=== PATIENT | female | born 1950 | race Caucasian/White ===

== ENCOUNTER → 2020-09-05 15:49 | Outpatient (BNVA) | payer MEDICARE, OTHER, SELFPAY | PROVIDERS: Family Provider Family Medicine; PCP Family Medicine; Visit Provider Internal Medicine Pulmonary Disease | DX: Z11.59 Encounter for screening for other viral diseases (principal) | CPT/HCPCS: 87635 ==

== ENCOUNTER 2020-09-10 08:57 | Outpatient (CLI) | payer MEDICARE, OTHER, SELFPAY ==
--- NOTE | 2020-09-10 10:03 | CT_ITS ---
WS: [id number] LDCT LUNG CANCER SCREENING TECHNIQUE: Noncontrast CT of the chest with coronal and sagittal reformatted images. CLINICAL INFORMATION: H/O OF TOBACCO USE COMPARISON: None. DLP: 65.81 mGy.cm DIvol: 2.[address] scans at [facility] use at least one of these dose optimization techniques: automat ed exposure control; mA and/or kV adjustment per patient size (includes targeted exams where dose is matched to clinical indication); or iterative reconstruction. FINDINGS: Moderate chronic emphysematous changes. No mediastinal or hilar lymphadenopathy. Prominent central pulmonary arteries can be seen with pulmonary arterial hypertension. Vascular calcification. Coronary calcification. No axillary lymphadenopathy. A few calcified granulomas. Large esophageal hiatal hernia with partial intrathoracic stomach. Kidneys and adrenal glands are nor mal. Chronic appearing anterior wedging at T11. Anterior hypertrophic changes T11-T12. CT/CT lung screening G0297 IMPRESSION: LUNG-RADS: 1-Negative FOLLOW UP: 12 Month: Continue annual screening with LDCT
[2020-09-10 10:06] VITALS: BP 106/59; BP 140/63
--- NOTE | 2020-09-10 13:42 | PFTS_ITS ---
Date of Study:09/10/20 Date of Dictation: MECHANICS: Forced vital capacity (FVC) is normal. Forced expiratory volume in one second (FEV1) is reduced. FEV1/FVC is reduced. FLOW VOLUME LOOP: Reduced flow at all lung volumes with scooping. LUNG VOLUMES: Total lung capacity (TLC) is normal. Residual volume (RV) is increased. DIFFUSING CAPACITY FOR CARBON MONOXIDE: Mild reduced. INTERPRETATION: The pulmonary function tests are consistent with moderate airflow obstruction. There is no significant postbronchodilator response. Lung volumes are consistent with air trapping. Gas exchange (DLCO) is mildly reduced. MTDD
== END 2020-09-10 08:58 | disposition home or self-care (01) ==
LOC: RT 09:00
PROVIDERS: PCP Family Medicine; Visit Provider Internal Medicine Pulmonary Disease
DX: Z12.2 Encounter for screening for malignant neoplasm of respiratory organs (principal); Z87.891 Personal history of nicotine dependence; R06.02 Shortness of breath
CPT/HCPCS: 94060; 94618; 94726; 94729; G0297; J7611

== ENCOUNTER 2020-09-10 11:00 | Outpatient (CLI) | payer MEDICARE, OTHER, SELFPAY | END 2020-09-10 11:01 | disposition home or self-care (01) | LOC: SLEEP 09-12 11:33 | PROVIDERS: PCP Family Medicine; Visit Provider Internal Medicine Pulmonary Disease | DX: R06.02 Shortness of breath (principal); Z12.2 Encounter for screening for malignant neoplasm of respiratory organs; Z87.891 Personal history of nicotine dependence | CPT/HCPCS: 94060; 94618; 94726; 94729; 94762; G0297; J7611 ==

== ENCOUNTER 2020-09-18 14:26 | Emergency (ER) | payer MEDICARE, OTHER, SELFPAY ==
[2020-09-18 14:37] VITALS: BP 150/82; PULSE 73; RESP 20; TEMP 36.7; O2SAT 98; BMI 33.8
--- NOTE | 2020-09-18 16:06 | XR_ITS ---
WS: [id number] Portable AP upright chest, 09/18/2020 Clinical Data: dyspnea Comparison: None. Findings: No nodules, masses or effusions are seen. No pneumonia or pneumothorax is present. The hear t is normal. The aortic arch shows calcification and mild tortuosity. There is a large hiatal hernia behind the heart. There are clips in the left side of neck from surgery. XR/XR chest 1V portable [id number] Impression: Atherosclerosis and hiatal hernia.
--- NOTE | 2020-09-18 16:06 | ECG_ITS ---
[facility] Test Date: 2020-09-18 Pat Name: Jumana Ignacio Department: Room: Gender: Female Professor Of Public Administration: : 1950 Requested By: Asad Lawrence Order Number: [id number] Sony MD: Ana Ramesh M.D. Measurements Intervals [place] Rate: 73 P: 65 ME: 156 QRS: 31 QRSD: 81 T: 34 QT: 379 QTc: 419 Interpretive Statements SINUS RHYTHM Compared to ECG 07/23/2017 14:00:46 No significant changes Electronically Signed On 09-18-2020 19:20:17 LINUX UNIX ENGINEER by Ana Ramesh M.D. [email or web address] [email or web address].[email or web address]/store/[id number] f
[2020-09-18 17:00] VITALS: BP 173/90; PULSE 68; RESP 20; O2SAT 97
--- NOTE | 2020-09-18 17:00 | PC.NURSE ---
Daughter informed registration the patients oxygen saturation was 69% while setting out in the waiting room and checking with a portable pulse ox. This RN brought patient into the triage room and reassessed patient. Patients vitals were all within normal limits. Educated patient and daughter that we are trying to get her back as soon as we can.
--- NOTE | 2020-09-18 18:06 | ECG_ITS ---
[facility] Test Date: 2020-09-18 Pat Name: Jumana Ignacio Department: Room: Gender: Female Construction Analyst: : 1950 Requested By: Asad Lawrence Order Number: [id number] Sony MD: Ana Ramesh M.D. Measurements Intervals [place] Rate: 68 P: 65 VT: 166 QRS: 44 QRSD: 86 T: 45 QT: 400 QTc: 426 Interpretive Statements SINUS RHYTHM Compared to ECG 09/18/2020 14:36:34 No significant changes Electronically Signed On 09-18-2020 19:29:24 MACHINE STITCHER by Ana Ramesh M.D. [email or web address].[email or web address]/store/OM/[id number]
[2020-09-18 19:21] VITALS: BP 143/87; PULSE 84; RESP 16; O2SAT 96
[2020-09-18 19:33] LABS: Basophils % 0.3 %; Eosinophils # 0.1 10^3/uL (0.0-0.8); Eosinophils % 1.1 %; Hematocrit 37.1 % (37.0-47.0); Hemoglobin 11.7 g/dL (11.5-15.3); Lymphocytes # 2.4 10^3/uL (0.8-4.8); Lymphocytes % 23.3 %; Mean Corpuscular HGB Conc 31.5 g/dL (30.0-36.0); Mean Corpuscular Hemoglobin 28.2 pg (28.0-34.0); Mean Corpuscular Volume 89.4 fL (81-99); Monocytes # 0.9 10^3/uL (0.2-0.9); Monocytes % 8.6 %; Neutrophils # 6.92 10^3/uL (1.8-7.7); Neutrophils % 66.4 %; Nucleated Red Blood Cells % 0 %; Platelet Count 316 10^3/cmm (130-400); Red Blood Count 4.15 10^6/uL (4.1-5.3); Red Cell Distribution Width 13.2 % (12.1-15.1); White Blood Count 10.4 10^3/uL (4.0-10.0)
[2020-09-18 19:49] LABS: Alanine Aminotransferase 7 U/L (0-33); Albumin Level 4.3 g/dL (3.5-5.2); Alkaline Phosphatase 75 IU/L (35-105); Anion Gap 14.7 (5-19); Aspartate Amino Transferase 10 U/L (0-32); Blood Urea Nitrogen 22 mg/dL (8-23); Calcium 9.8 mg/dL (8.5-10.5); Carbon Dioxide 28 mmol/L (22-29); Chloride 99 mmol/L (98-107); Globulin 2.9 g/dL (1.3-4.6); Glomerular Filtration Rate 27.8 mL/min (90-130); Glucose 123 mg/dL (65-115); Osmolality Calculated 291 mOsm/kg (285-295); Potassium 3.7 mmol/L (3.5-5.1); Sodium 138 mmol/L (136-145); Total Bilirubin 0.6 mg/dL (0.15-1.2); Total Protein 7.2 g/dL (6.6-8.7)
[2020-09-18 19:50] LABS: Troponin(5th) Baseline 11 ng/L (0-10)
--- NOTE | 2020-09-18 19:57 | W.ED.CHESTPA ---
HPI - Chest Pain General: Chief Complaint: Chest Pain Stated Complaint: Chest Pain/Sent From Dr. Bray Time Seen by Provider: 09/18/20 18:56 Source: patient and family Mode of arrival: ambulatory Limitations: no limitations History of Present Illness: HPI narrative: 70-year-old female patient who has been having episodes of chest pain intermittently for the last 2 days. She is currently chest pain-free. She went to see her respiratory services manager today and after explaining to him that she had been having chest pain he advised that she come to the emergency department for evaluation. Pain is nonradiating, associated with shortness of breath but no nausea, diaphoresis, or dizziness. complaint: chest pain Onset (ago): day(s) (3) Timing of current episode: episodic Onset: during rest Pain location: left chest Pain radiation: none Severity: moderate Quality: sharp Relieving factors: nothing Exacerbating factors: nothing Associated symptoms: Reports dyspnea; Deny abdominal pain, diaphoresis, fever(s), leg edema, nausea, palpitations, sense of impending doom, syncope or vomiting Review of Systems General: Reports: 10 or more systems reviewed and unremarkable except in HPI and below Const: Denies: fever(s) or diaphoresis Eyes: Denies: change in vision or blurry vision ENMT: Denies: throat pain, enlarged tonsils, odynophagia, hoarseness, mouth pain or swelling of lips/tongue Card: Denies: palpitations or syncope Resp: Reports: dyspnea GI: Denies: abdominal pain, nausea or vomiting : Denies: flank pain, difficulty voiding, dysuria, urinary frequency, urinary urgency or urinary hesitancy Musc: Denies: neck pain, back pain or extremity swelling Skin/Breast: Denies: rash, pruritus or erythema Neuro: Denies: headache(s), numbness in extremities or weakness in extremities Endo: Denies: polyuria, polydipsia or tired all the time PFSH ED PFSH: Medical History Hiatal hernia Nocturnal hypoxia Stage 3 chronic kidney disease Social History Smoking and tobacco status: former smoker Quit status (tobacco): has quit using tobacco Year quit tobacco: 08/25/2007 Former quit date comment: [id number] Second hand smoke exposure: No Smoking risk assessment/counseling performed?: Yes Alcohol intake: current Alcohol intake frequency: holidays/special occasions only Desire information about alcohol rehabilitation?: No Counseling given: No Lives independently: Yes Household members: spouse Housing: House Marital status: service: No Current occupational status: retired History of recent travel: No Current gender identity: Female Physical Exam Const: COMMON NORMALS: no acute distress, average body habitus, patient oriented x3, no limitations, healthy appearing, alert and well nourished HENMT: COMMON NORMALS: normocephalic, atraumatic and moist oral mucous membranes HEAD & SCALP: normocephalic and atraumatic Neck/C-Spine: COMMON NORMALS: no meningeal signs and no JVD Resp: COMMON NORMALS: normal respiratory effort, No retractions, No use of accessory muscles, clear to auscultation bilaterally and percussion normal AUSCULTATION: clear to auscultation bilaterally PERCUSSION: percussion normal Cardio: COMMON NORMALS: no JVD, regular rate, regular rhythm, S1 normal heart sound present, S2 normal heart sound present, No gallops present (Cardio), No clicks present (Cardio), No murmurs present (Cardio), No rub (Cardio) and Peripheral pulses 2+ throughout RATE: regular rate RHYTHM: regular rhythm HEART SOUNDS: S1 normal heart sound present and S2 normal heart sound present PERIPHERAL PULSES: Peripheral pulses 2+ throughout GI: COMMON NORMALS: Normal to inspection, nondistended, normoactive bowel sounds present, Soft to palpation, non-tender, No hepatosplenomegaly present, no masses and no bruits PALPATION: Yes Soft to palpation and Yes No hepatosplenomegaly present Extremity: COMMON NORMALS: normal to inspection, full ROM, capillary refill normal, no calf tenderness and no pedal edema Neuro: COMMON NORMALS: patient oriented x3 SENSORIUM/ORIENTATION: Yes alert MENINGEAL SIGNS: Yes no meningeal signs Skin: COMMON NORMALS: no rashes or lesions noted, no wounds, turgor normal, no jaundice, no petechiae and no mottling GENERAL SKIN EXAM: no rashes or lesions noted and turgor normal Course Reevaluation(s): Reevaluation #1: Discussed her lab and imaging findings with her. Baseline troponin mildly elevated but she has a flat 2-hour delta. VQ scan shows a low probability for PE. Other labs and imaging unremarkable. She will be discharged home with no new orders and she is to follow-up with her respiratory services manager and primary care provider. She voiced understanding and is in agreement with the plan. Time: 00:01 Vital Signs: Vital signs: Vital Signs Temperature 98.1 F 09/18/20 14:37 Pulse Rate 85 09/19/20 00:31 Respiratory Rate 16 09/19/20 00:31 Blood Pressure 142/87 09/19/20 00:31 Pulse Oximetry 99 09/19/20 00:31 MDM - Chest Pain MDM Narrative: Medical decision making narrative: Patient who presents to the emergency department with chest pain. Her respiratory services manager was concerned because she had had persistent hypoxia. He wanted a prescription for pulmonary embolism. Evaluation in the emergency department was unremarkable and she is discharged home. Medical Records: Attestation: I reviewed the patient's medical records. Lab Data: Attestation: I reviewed the patient's lab results. Labs: Lab Results 09/18/20 09/18/20 09/18/20 Range/Units 19:10 19:10 19:10 WBC 10.4 H (4.0-10.0) 10^3/ uL RBC 4.15 (4.1-5.3) 10^6/u L Hgb 11.7 (11.5-15.3) g/dL Hct 37.1 (37.0-47.0) % MCV 89.4 (81-99) fL MCH 28.2 (28.0-34.0) pg MCHC 31.5 (30.0-36.0) g/dL RDW 13.2 (12.1-15.1) % Plt Count 316 (130-400) 10^3/c mm MPV 11.0 H (7.4-10.4) fL Neut % (Auto) 66.4 % Lymph % (Auto) 23.3 % [place] % (Auto) 8.6 % Eos % (Auto) 1.1 % Baso % (Auto) 0.3 % Neut # (Auto) 6.92 (1.8-7.7) 10^3/u L Lymph # (Auto) 2.4 (0.8-4.8) 10^3/u L Victoria # (Auto) 0.9 (0.2-0.9) 10^3/u L Eos # (Auto) 0.1 (0.0-0.8) 10^3/u L Baso # (Auto) 0.0 (0.0-0.1) 10^3/u L Nucleated RBC % (a uto) 0 % Nucleated RBCs # 0.0 /100WBC D-Dimer (0-0.59) ug/mIFE U Sodium 138 (136-145) mmol/L Potassium 3.7 (3.5-5.1) mmol/L Chloride 99 (98-107) mmol/L Carbon Dioxide 28 (22-29) mmol/L Anion Gap 14.7 (5-19) BUN 22 (8-23) mg/dL Creatinine 1.8 H (0.5-0.9) mg/dL GFR Calculation 27.8 L (90-130) mL/min Glucose 123 H (65-115) mg/dL Calculated Osmolal ity 291 (285-295) mOsm/k g Calcium 9.8 (8.5-10.5) mg/dL Total Bilirubin 0.6 (0.15-1.2) mg/dL AST 10 (0-32) U/L ALT 7 (0-33) U/L Alkaline Phosphata se 75 (35-105) IU/L Troponin T Baselin e 11 H (0-10) ng/L Troponin T 120 Min pilot station (0-10) ng/L Delta Troponin T (0-10) ABS# Total Protein 7.2 (6.6-8.7) g/dL Albumin 4.3 (3.5-5.2) g/dL Globulin 2.9 (1.3-4.6) g/dL 09/18/20 09/18/20 Range/Units 19:10 21:50 WBC (4.0-10.0) 10^3/ uL RBC (4.1-5.3) 10^6/u L Hgb (11.5-15.3) g/dL Hct (37.0-47.0) % MCV (81-99) fL MCH (28.0-34.0) pg MCHC (30.0-36.0) g/dL RDW (12.1-15.1) % Plt Count (130-400) 10^3/c mm MPV (7.4-10.4) fL Neut % (Auto) % Lymph % (Auto) % Victoria % (Auto) % Eos % (Auto) % Baso % (Auto) % Neut # (Auto) (1.8-7.7) 10^3/u L Lymph # (Auto) (0.8-4.8) 10^3/u L Victoria # (Auto) (0.2-0.9) 10^3/u L Eos # (Auto) (0.0-0.8) 10^3/u L Baso # (Auto) (0.0-0.1) 10^3/u L Nucleated RBC % (a uto) % Nucleated RBCs # /100WBC D-Dimer 0.88 H (0-0.59) ug/mIFE U Sodium (136-145) mmol/L Potassium (3.5-5.1) mmol/L Chloride (98-107) mmol/L Carbon Dioxide (22-29) mmol/L Anion Gap (5-19) BUN (8-23) mg/dL Creatinine (0.5-0.9) mg/dL GFR Calculation (90-130) mL/min Glucose (65-115) mg/dL Calculated Osmolal ity (285-295) mOsm/k g Calcium (8.5-10.5) mg/dL Total Bilirubin (0.15-1.2) mg/dL AST (0-32) U/L ALT (0-33) U/L Alkaline Phosphata se (35-105) IU/L Troponin T Baselin e (0-10) ng/L Troponin T 120 Min pilot station 10.66 H (0-10) ng/L Delta Troponin T -0.34 L (0-10) ABS# Total Protein (6.6-8.7) g/dL Albumin (3.5-5.2) g/dL Globulin (1.3-4.6) g/dL Imaging Data^: Other Imaging: Attestation: I personally reviewed and interpreted this imaging study as follows: Radiologist's impression: [address] [address] Nuclear Medicine Report Signed Patient: Jumana Ignacio #: [id number] : 1950Acct#:[id number] Age/Sex: 70 / FADM Date: 09/18/20 Loc: ERRoom/Bed: Attending Dr: Ordering Provider/Ordering MD: Shakir Virgen MD, [facility] Date of Service: 09/18/20 Procedure(s): NM pul vent and perfus* 05101 Accession Number(s): [id number] Report Number: [id number] PROCEDURE INFORMATION: Exam: NM Lung Ventilation and Perfusion Imaging Exam date and time: 09/18/2020 10:41 PM Age: 70 years old Clinical indication: Shortness of breath; Patient HX: SOB x 3 days, copd; Additional info: Hypoxia TECHNIQUE: Imaging protocol: Nuclear pulmonary ventilation with aerosol or gas was performed followed by perfusion. Views: Ventilation acquired with multiple projections. Perfusion acquired with multiple projections. Radiopharmaceutical: 32.2 mCi DTPA Aersol (Tc-99m DTPA), Inhalation. 5.2 mCi Tc-99m MAA, IV. COMPARISON: CT lung screening G0297 09/10/2020 10:20 AM FINDINGS: Ventilation: See below Perfusion: Patchy bilateral somewhat mixed perfusion and ventilation defects. NM/NM pul vent and perfus* [id number] IMPRESSION: Low probability for pulmonary embolus. Dictated By:Leonardo Aguila MD Signed By:Leonardo Aguila MDSigned Date/Time:09/18/202338 DD/ 36 EKG Data^: EKG 1: Attestation: I personally reviewed and interpreted this EKG as follows: EKG interpretation date: 09/18/20 EKG interpretation time: 19:10 Prior EKG tracings: not available for review Interpretation: Normal sinus rhythm. Heart rate [address] changes. Normal axis. EKG 2: Attestation: I personally reviewed and interpreted this EKG as follows: EKG interpretation date: 09/18/20 Computer generated interpretation: [address] [address] Electrocardiograph Report Draft Patient: Jumana Ignacio #: [id number] : 1950Acct#:[id number] Age/Sex: 70 / FADM Date: 09/18/20 Loc: ERRoom/Bed: Attending Dr: Ordering Provider/Ordering MD: Asad Parsons DO Date of Service: 09/18/20 Procedure(s): ECG 12 lead EKG Accession Number(s): [id number] Report Number: [id number] [facility] Test Date: 2020-09-18 Pat Name: Jumana Ignacio Department: Room: Gender: Female Streetcar Starter: : 1950 Requested By: Asad Lawrence Order Number: [id number] Reading MD: Measurements Intervals [place] Rate: 65 P: 68 OR: 158 QRS: 38 QRSD: 80 T: 38 QT: 412 QTc: 431 Interpretive Statements SINUS RHYTHM Compared to ECG 09/18/2020 19:10:00 No significant changes [email or web address] medical [email or web address]/store/[id number] Dictated By:INTERFACE,USER Signed By:Signed Date/Time: DD/ 44 Discharge Plan Discharge Patient Disposition: Home Clinical Impression: Chest pain, CKD (chronic kidney disease) stage 4, GFR 15-29 ml/min Condition: Stable Prescriptions: Continued hydrochlorothiazide 12.5 mg capsule 12.5 mg PO DAILY RF: 0 omeprazole 40 mg capsule,delayed release(DR/EC) 40 mg PO BID RF: 0 simvastatin 40 mg tablet 40 mg PO DAILY RF: 0 tramadol 100 mg tablet 100 mg PO TID PRN (Reason: Pain) RF: 0 ferrous sulfate [FeroSul] 325 mg (65 mg iron) tablet 325 mg PO BID RF: 0 metoprolol succinate 50 mg capsule,sprinkle,ER 24hr 50 mg PO DAILY RF: 0 aspirin 81 mg tablet,delayed release (DR/EC) 81 mg PO DAILY RF: 0 Discharge Orders: Discharge Order (Routine); Ordered 09/19/20 Ordered By: Shakir Virgen Referrals: Joe Martinez [Primary Care Provider] - 1-3 days Discharge Diet: Usual diet Discharge Activity: Increase activity as tolerated Patient Instructions: Chest Pain (ED) Activity Restrictions/Additional Instructions: Return for any new or worsening symptoms. Follow-up with your primary care provider within 3 days. Follow up with Dr. Bray as scheduled. Continue your home medications. Coding Level of Care Code ED Puppy Trainer for Chg Fwd Exam Comprehensive
[2020-09-18 20:41] VITALS: BP 144/74; PULSE 96; RESP 18; O2SAT 96
[2020-09-18 21:37] LABS: D Dimer 0.88 ug/mIFEU (0-0.59)
[2020-09-18 21:54] VITALS: BP 134/49; PULSE 68; RESP 18; O2SAT 99
--- NOTE | 2020-09-18 22:06 | ECG_ITS ---
[facility] Test Date: 2020-09-18 Pat Name: Jumana Ignacio Department: Room: Gender: Female Engineer Sergeant: : 1950 Requested By: Asad Lawrence Order Number: [id number] Sony MD: Brian Eldridge M.D. Measurements Intervals [place] Rate: 65 P: 68 TN: 158 QRS: 38 QRSD: 80 T: 38 QT: 412 QTc: 431 Interpretive Statements SINUS RHYTHM Compared to ECG 09/18/2020 19:10:00 No significant changes Electronically Signed On 09-19-2020 10:20:42 SPEECH AND LANGUAGE SPECIALIST by Brian lEdridge M.D. [email or web address].[facility] lakewood medical centerSolix BioSystems, Inc.[facility].Smart Planet [employer]/store/OM/[id number]
--- NOTE | 2020-09-18 22:22 | NMR_ITS ---
PROCEDURE INFORMATION: Exam: SC Lung Ventilation and Perfusion Imaging Exam date and time: 09/18/2020 10:41 PM Age: 70 years old Clinical indication: Shortness of breath; Patient HX: SOB x 3 days, copd; Additional info: Hypoxia TECHNIQUE: Imaging protocol: Nuclear pulmonary ventilation with aerosol or gas was performed followed by perfusion. Views: Ventilation acquired with multiple projections. Perfusion acquired with multiple projections. Radiopharmaceutical: 32.2 mCi DTPA Aersol (Tc-99m DTPA), Inhalation. 5.2 mCi Tc-99m MAA, IV. COMPARISON: CT lung screening G0297 09/10/2020 10:20 AM FINDINGS: Ventilation: See below Perfusion: Patchy bilateral somewhat mixed perfusion and ventilation defects. SC/SC pul vent and perfus* [id number] IMPRESSION: Low probability for pulmonary embolus.
[2020-09-18 22:37] LABS: Troponin 5 2HR 10.66 ng/L (0-10)
[2020-09-18 22:46] LABS: Troponin 5 2HR Delta -0.34 ABS# (0-10)
[2020-09-19 00:31] VITALS: BP 142/87; PULSE 85; RESP 16; O2SAT 99
== END 2020-09-19 00:32 | disposition home or self-care (01) ==
PROVIDERS: Family Medicine; Emergency Provider Family Medicine; PCP Family Medicine
DX: R07.9 Chest pain, unspecified (principal); N18.4 Chronic kidney disease, stage 4 (severe); Z79.82 Long term (current) use of aspirin; Z87.891 Personal history of nicotine dependence
CPT/HCPCS: 12345; 71045; 78014; 80053; 84484; 85025; 85378; 93005; 99283; A9540; A9567

== ENCOUNTER → 2021-05-15 10:55 | Outpatient (BNVA) | payer MEDICARE, OTHER, SELFPAY | PROVIDERS: PCP Family Medicine; Referring Provider Family Medicine; Visit Provider Orthopaedic Surgery | DX: M17.12 Unilateral primary osteoarthritis, left knee (principal); M25.562 Pain in left knee | CPT/HCPCS: 73560; 73565 ==

== ENCOUNTER → 2021-05-29 15:14 | Outpatient (BNVA) | payer MEDICARE, OTHER, SELFPAY | PROVIDERS: PCP Family Medicine; Visit Provider Orthopaedic Surgery | DX: Z01.812 Encounter for preprocedural laboratory examination (principal); Z20.822 Contact with and (suspected) exposure to COVID-19 | CPT/HCPCS: 87635 ==

== ENCOUNTER 2021-06-03 11:52 | Observation (INO) | payer MEDICARE, OTHER, SELFPAY ==
[2021-05-29 14:01] VITALS: BMI 34.7
--- NOTE | 2021-05-29 14:16 | ECG_ITS ---
[facility] Test Date: 2021-05-29 Pat Name: Jumana Ignacio Department: Room: Gender: Female Account Manager Sales Representative: : 1950 Requested By: Keri Alcazar Order Number: [id number] Sony MD: Brian Eldridge M.D. Measurements Intervals [place] Rate: 50 P: 63 MS: 159 QRS: 34 QRSD: 84 T: 35 QT: 462 QTc: 423 Interpretive Statements SINUS BRADYCARDIA Compared to ECG 09/18/2020 22:45:21 Sinus rhythm no longer present Electronically Signed On 05-29-2021 17:34:24 CDT by Brian Eldridge M.D. [email or web address] Wildmonroe regional hospitalTruecallermercy health st[facility].Opeepl/store/OM/[id number]
[2021-05-29 14:29] LABS: Basophils % 0.6 %; Eosinophils # 0.2 10^3/uL (0.0-0.8); Eosinophils % 2.6 %; Hematocrit 37.6 % (37.0-47.0); Lymphocytes # 1.4 10^3/uL (0.8-4.8); Lymphocytes % 19.2 %; Mean Corpuscular HGB Conc 31.9 g/dL (30.0-36.0); Mean Corpuscular Hemoglobin 28.8 pg (28.0-34.0); Mean Corpuscular Volume 90.2 fL (81-99); Mean Platelet Volume 11.1 fL (7.4-10.4); Monocytes # 0.7 10^3/uL (0.2-0.9); Monocytes % 10.2 %; Neutrophils # 4.86 10^3/uL (1.8-7.7); Neutrophils % 67.1 %; Nucleated Red Blood Cells % 0 %; Platelet Count 275 10^3/cmm (130-400); Red Blood Count 4.17 10^6/uL (4.1-5.3); Red Cell Distribution Width 13.2 % (12.1-15.1); White Blood Count 7.2 10^3/uL (4.0-10.0)
--- NOTE | 2021-05-29 14:45 | P.ANESASSM_ITS ---
Pre-Anesthetic Assessment Pre-Anesthetic Assessment: Height/Weight: Height 1.57 m Weight 86.183 kg Preop Diagnosis: Osteoarthritis Left knee Proposed Procedure: Operation Date: 06/03/21 12:20 Proposed Procedures p left Total Knee Arthroplasty 39610 M17.12(Left) - Aston Parker MD Familial anesthetic complications: None Social: Social History: No alcohol and No tobacco Exam: Pre-Anes Outpt Exam: alert, oriented x 3, clear to auscultation bilaterally and regular rate & rhythm Airway: Cervical ROM: WNL MP: 1 Dentition: False Pulmonary: Pulmonary: COPD (2 L NC at night) and Sleep apnea (patient denies LEESA) CV/HEM: CV/HEM: HTN : : Chronic renal Insufficiency (stage III - HTN) GI: GI: GERD and Hiatus hernia Metabolic: Metabolic: Hyperlipidemia Neuropsych: Neuropsych: TIA (2015 ) Anesthetic Plan: ASA status: 3 Anesthesia: Regional (specify below) Other: spinal + adductor Risk of > 500 ml blood loss (7ml/kg in children): No PFSH Anesthesia PFSH: Medical History Benign hypertension Celiac sprue COPD (chronic obstructive pulmonary disease) Gastroesophageal reflux disease without esophagitis H/O TIA (transient ischemic attack) and stroke Hiatal hernia Nocturnal hypoxia Osteoarthritis of knee Stage 3 chronic kidney disease Surgical History H/O esophagogastroduodenoscopy History of arthroplasty of knee History of History of carotid angioplasty History of neck surgery History of shoulder surgery Status post colonoscopy Social History Smoking and tobacco status: never smoked Quit status (tobacco): has quit using tobacco Year quit tobacco: 08/25/2007 Former quit date comment: [id number] Second hand smoke exposure: No Smoking risk assessment/counseling performed?: Yes Alcohol intake: current Alcohol intake frequency: holidays/special occasions only Desire information about alcohol rehabilitation?: No Counseling given: No Lives independently: Yes Household members: spouse Housing: House Marital status: service: No Current occupational status: retired Pets and animals: Yes History of recent travel: No Current gender identity: Female Data Anesthesia CBC & Chem 7: 05/29/21 14:23 05/29/21 14:23 Other Labs: Laboratory Results - last 48 hr 05/29/21 14:23 WBC 7.2 RBC 4.17 Hgb 12.0 Hct 37.6 MCV 90.2 MCH 28.8 MCHC 31.9 RDW 13.2 Plt Count 275 MPV 11.1 H Neut % (Auto) 67.1 Lymph % (Auto) 19.2 [place] % (Auto) 10.2 Eos % (Auto) 2.6 Baso % (Auto) 0.6 Neut # (Auto) 4.86 Lymph # (Auto) 1.4 [place] # (Auto) 0.7 Eos # (Auto) 0.2 Baso # (Auto) 0.0 Nucleated RBC % (auto) 0 Nucleated RBCs # 0.0 Cardiac Studies: No Data to Display
[2021-05-29 14:50] LABS: Anion Gap 13.9 (5-19); Blood Urea Nitrogen 23 mg/dL (8-23); Calcium 9.2 mg/dL (8.5-10.5); Carbon Dioxide 28 mmol/L (22-29); Chloride 99 mmol/L (98-107); Glomerular Filtration Rate 23.3 mL/min (90-130); Glucose 102 mg/dL (65-115); Osmolality Calculated 288 mOsm/kg (285-295); Potassium 3.9 mmol/L (3.5-5.1); Sodium 137 mmol/L (136-145)
[2021-06-03] VITALS (15 sets, daily range): BP systolic 123–170; BP diastolic 63–98; PULSE 56–69; RESP 12–18; TEMP 36.1–36.9; O2SAT 93–100
[2021-06-03] MEDS: oxyCODONE 20 mg ER (12 HR) Tablet PO (08:26)
[2021-06-03] MEDS: acetaminophen 500 mg Tablet 1000 MG PO ×2 (08:26→17:40)
[2021-06-03] MEDS: CELEcoxib 200 mg Capsule 400 MG PO (08:26)
[2021-06-03] MEDS: gabapentin 300 mg Capsule PO ×2 (08:26→21:27)
[2021-06-03] MEDS: sodium chloride 0.9% 1,000 ML 30 ML IV (08:30)
--- NOTE | 2021-06-03 09:04 | P.ANESUD_ITS ---
Pre-Anesthetic Update Pre-Anesthetic Assessment: Date of Surgery/Procedure: 06/03/21 Preop Subha gnosis: Osteoarthritis Left knee Proposed Procedure: Operation Date: 06/03/21 09:30 Proposed Procedures p left Total Knee Arthroplasty 80784 M17.12(Left) - Aston Parker MD Any changes to Pre-Anesthetic Assessment?: No Last Intake: Intake Last Liquid Date 06/02/21 Last Liquid Time 22:30 Last Solid Date 06/02/21 Last Solid Time 20:00 Vitals: Temperature 98.4 F 06/03/21 08:09 Temperature Source Temporal Artery S can 06/03/21 08:09 Pulse Rate 56 L 06/03/21 08:09 Pulse Rhythm 06/03/21 08:09 Pulse Strength 3+ Normal 06/03/21 08:09 Respiratory Rate 18 06/03/21 08:09 Blood Pressure 153/98 06/03/21 08:09 Blood Pressure Kayleigh n 116 06/03/21 08:09 Pulse Oximetry 99 06/03/21 08:09 Oxygen Delivery Me thod 06/03/21 08:09 Exam: Pre-Anes Outpt Exam: alert, oriented x 3, clear to auscultation bilaterally and regular rate & rhythm Other Pertinent Information: Other Pertinent Information: SAB with adductor Cardiac Studies: No Data to Display
--- NOTE | 2021-06-03 09:18 | W.PM.OPSFHP ---
Same Day Surgery H&P Indication for Procedure/HPI DATE OF PROCEDURE: June 03, 2021 CHIEF COMPLAINT/INDICATIONFOR SURGICAL PROCEDURE: 70-year-old female with chronic left knee pain and significant functional limitations. She has failed medications and injections and is here for a left total knee arthroplasty PREOP DIAGNOSIS: Osteoarthritis Left knee PLANNED PROCEDRUE: Operation Date: 06/03/21 09:30 Proposed Procedures p left Total Knee Arthroplasty 54945 M17.12(Left) - Aston Parker MD Medications/Allergies* Home Medications Medication Instructions Recorded Confirmed Type aspirin 81 mg tablet,delayed 81 mg PO DAILY 08/14/20 06/03/21 History release ferrous sulfate 325 mg (65 mg 325 mg PO BID 08/14/20 06/03/21 History iron) tablet hydrochlorothiazide 12.5 mg capsule 12.5 mg PO DAILY 08/14/20 06/03/21 History metoprolol succinate 50 mg capsule 50 mg PO DAILY 08/14/20 06/03/21 History sprinkle, ext. release 24 hr omeprazole 40 mg capsule,delayed 40 mg PO BID 08/14/20 06/03/21 History release simvastatin 40 mg tablet 40 mg PO DAILY 08/14/20 06/03/21 History tramadol 100 mg tablet 100 mg PO TID PRN 08/14/20 06/03/21 History fluoxetine 10 mg PO DAILY 05/29/21 06/03/21 History Allergies/Adverse Reactions Allergy/AdvReac Type Severity Reaction Status Date / Time gluten Allergy Severe ADR-Diarrhe Verified 05/15/21 10:44 a propoxyphene [From Darvon] AdvReac ADR-Vomitin Verified 05/15/21 10:44 g Current Medications: Generic Name Dose Route Start Last Admin Trade Name Freq PRN Reason Stop Dose Admin Sodium Chloride 1,000 mls @ 30 mls/hr 06/03/21 08:00 06/03/21 08:30 Sodium Chloride 0.9% IV 06/04/21 07:59 30 mls/hr .Q24H ASTRID Administration Pertinent History/Comorbid Conditions* Medical History (Updated 09/28/20 @ 14:36 by Teddy Diaz MD) Benign hypertension Celiac sprue COPD (chronic obstructive pulmonary disease) Gastroesophageal reflux disease without esophagitis H/O TIA (transient ischemic attack) and stroke Hiatal hernia Nocturnal hypoxia Osteoarthritis of knee Stage 3 chronic kidney disease Surgical History (Updated 09/28/20 @ 10:39 by Teddy Diaz MD) H/O esophagogastroduodenoscopy History of arthroplasty of knee History of History of carotid angioplasty History of neck surgery History of shoulder surgery Status post colonoscopy Social History Smoking and tobacco status: never smoked Quit status (tobacco): has quit using tobacco Year quit tobacco: 08/25/2007 Former quit date comment: [id number] Second hand smoke exposure: No Smoking risk assessment/counseling performed?: Yes Alcohol intake: current Alcohol intake frequency: holidays/special occasions only Desire information about alcohol rehabilitation?: No Counseling given: No Lives independently: Yes Household members: spouse Housing: House Marital status: service: No Current occupational status: retired Pets and animals: Yes History of recent travel: No Current gender identity: Female Pertinent Exam Findings alert, oriented x 3, clear to auscultation bilaterally, regular rate & rhythm and operative site marked Recommendations Surgery/Procedure today Coding Level of Care Code Acute Geosciences Professor for Yesi Milner
[2021-06-03] MEDS: EPINEPHrine 1 mg/mL INJ XX (10:29)
[2021-06-03] MEDS: tranexamic acid 1,000 mg/10mL SDV 1000 MG IRRIGATION (10:29)
[2021-06-03] MEDS: ketorolac 30 mg/mL INJ XX (10:30)
--- NOTE | 2021-06-03 10:36 | ANES.PROC ---
Anesthesia Procedures Procedure/Date: 06/03/21 Nerve Block ^: Nerve Block 1: Main Anesthesia: spinal anesthesia block Time Out Performed: Yes Consent: requested by attending/covering physician, from patient, risks and benefits reviewed and patient agrees to proceed Nerve block location: adductor canal (left) Anesthesia monitors applied: pulse oximetry, EKG, BP cuff and oxygen Nerve block position: supine Anesthetic Used: ropivicaine 0.5% Amount of anesthesia used (mL): 20 Ultrasound used to: recognize landmarks Nerve Stimulator Used?: No Interscalene/Femoral BLK: 4 stimuplex 21 g needle used for position and inplane approach and visualize local anesthetic spread Injection: neg aspiration of heme Patient Tolerated Procedure: well Complications: none
--- NOTE | 2021-06-03 11:38 | P.OP_ITS ---
Operative Report Date of procedure: June 03, 2021 Pre-op Diagnosis: Osteoarthritis Left knee Post-op diagnosis: same Post-op Findings: Tricompartmental osteoarthritis left knee Procedure Done: Left total knee arthroplasty Implants: [place] total knee arthroplasty components were used includin) Size 5 triathalon cruciate retaining femoral component 2) Size 5 Tritanium tibial component 3) 35 mm /10 mm thickness Tritanium asymetric patella 4) Size 5/11 mm thickness CR tibial bearing insert Pathology: none sent Surgeon: Aston Parker Anesthesia: General and Nerve Block (Spinal , adductor canal block) Estimated blood loss (mL): 50 Complications: None Findings: Patient had eburnated bone in all 3 compartments with degeneration most marked over the medial tibial plateau Condition: stable Disposition: PACU Procedure: The patient was taken to the operating room. Patient was given 1 g of tranexamic acid . The above anesthesia provided by the anesthesia service. A timeout was performed. The patient was prepped and draped in the usual fashion with the lower extremity exposed. A anterior incision was made, midline, from a point proximal to the patella to the distal tibial tubercle. The knee was entered through a medial parapatellar approach. The patella could be displaced laterally and the knee flexed. The patellar fat pad was resected to provide better visibility. Retractors were placed medially and laterally adjacent to the tibial plateau. The femoral canal was drilled in line with the longitudinal axis of the femur. Intramedullary femoral guide for used to make a distal femoral cut in 5 degrees of valgus, resecting 8 mm from the more prominent condyle. Next the extra medullary tibial guide was placed in alignment with the longitudinal axis of the tibia. The cutting guides were set to remove just over 2 mm from the low tibial plateau. The proximal tibia was then cut. The femoral measuring guide was then placed over the distal femur. Rotation was verified checking the relationship of the guide to the condyle and the trochlear groove. The femur was measured and cut for the desired femoral component. The desired tibial baseplate was then chosen. A trial reduction with the femur tibial baseplate and polyethylene was done, assuring that the knee was stable throughout full motion. Ligament balancing to release the deep medial collateral ligament and removal of medial osteophyte.The tibia was prepared for the tibial baseplate. Patellar thickness was then measured. The patella was cut removing articular cartilage and prepared for appropriate size patellar button. surfaces were cleaned with a gentamicin/tranexamic acid solution. The femur tibia and patella were then press-fit into place, however fixation of the patellar component was less than optim. The patellar component was removed and the patellar bone surface clean. Cement was applied to the patella and the patellar button cemented in place the posterior capsule and collateral ligaments were then injected with a solution of 100 mL of 0.2% ropivacaine, 1 mL of a 1:1000 epinephrine solution, and 30 mg of Toradol. Final polyethylene component was then snapped into place into the tibia. The tourniquet was deflated. The tranxanemic acid was left contact with the knee for 5 minutes before the knee was irrigated with saline. The extensor retinaculum was closed with a running 1 Stratafix.. The subcutaneous tissues were closed with 2-0 Vicryl and the skin was closed with a running 3-0 Stratafix. The wound was covered with a Dermabond Prinio dressing. It was covered with 4xrs and a compressive Tubigauae was applied. The patient was taken to recovery room in stable condition.
--- NOTE | 2021-06-03 11:54 | XR_ITS ---
WS: [id number] XR knee LT 1-2V 68129 REASON FOR EXAM: Status post left knee replacement FINDINGS: Three-part total left knee arthroplasty. The 3 complements of the prosthesis are properly positioned and aligned. No significant bony or soft tissue abnormality is identified. XR/XR knee LT 1-2V 56755 IMPRESSION: Total left knee replacement without abnormality.
[2021-06-03] MEDS: alum-mag-hydroxide-sime 30 mL UDC PO (15:04)
[2021-06-03] MEDS: oxyCODONE 5 mg IR Tab/Cap PO (15:04)
[2021-06-03] MEDS: sodium chloride 0.9% 1,000 ML 100 ML IV (15:22)
--- NOTE | 2021-06-03 16:42 | ANE.PACU2 ---
Inpatient post-anesthesia follow up: Airway intact: Yes Vital signs: Temperature 97.8 F Pulse Rate 61 Respiratory Rate 16 Blood Pressure 165/80 Pulse Oximetry 100 Oxygen Delivery Me thod Room Air Oxygen Flow Rate 1 Fraction of Inspir ed Oxygen Hydration adequate: Yes Nausea and vomiting: No Pain level: 2 Mental status: Baseline
[2021-06-03] MEDS: ferrous sulfate EC 325 mg Tablet PO (17:40)
[2021-06-03] MEDS: pantoprazole DR 40 mg Tablet PO (17:40)
[2021-06-03] MEDS: sennosides-docusate Tablet 2 TAB PO (18:34)
[2021-06-03] MEDS: CELEcoxib 200 mg Capsule PO (21:27)
[2021-06-04] VITALS (7 sets, daily range): BP systolic 118–152; BP diastolic 67–80; PULSE 67–79; RESP 16–20; TEMP 36.6–36.7; O2SAT 95–98
[2021-06-04] MEDS: sodium chloride 0.9% 1,000 ML 100 ML IV (03:12)
[2021-06-04] MEDS: acetaminophen 500 mg Tablet 1000 MG PO ×2 (03:14→11:03)
[2021-06-04] MEDS: oxyCODONE 5 mg IR Tab/Cap PO ×2 (08:55→13:26)
[2021-06-04] MEDS: aspirin 81 mg EC Tablet PO (09:02)
[2021-06-04] MEDS: fluoxetine 10 mg Capsule PO (09:05)
[2021-06-04] MEDS: CELEcoxib 200 mg Capsule PO (09:05)
[2021-06-04] MEDS: hydroCHLOROthiazide 25 mg Tablet 12.5 MG PO (09:06)
[2021-06-04] MEDS: gabapentin 300 mg Capsule PO (09:06)
[2021-06-04] MEDS: pantoprazole DR 40 mg Tablet PO (09:07)
[2021-06-04] MEDS: ferrous sulfate EC 325 mg Tablet PO (09:07)
[2021-06-04] MEDS: metoprolol succinate ER (24 HR) 50 mg Tablet PO (09:07)
[2021-06-04] MEDS: sennosides-docusate Tablet 2 TAB PO (09:27)
--- NOTE | 2021-06-04 09:27 | PC.NURSE ---
Patient requested to go back to bed. Patient assisted by this nurse along with the use of a walker. Pt tolerated well.
--- NOTE | 2021-06-04 09:51 | PC.NURSE ---
Therapy in with patient at this time.
--- NOTE | 2021-06-04 13:23 | PM.DCS ---
Discharge Providers Date of Admission: 06/03/21 11:52 Date of Discharge: June 04, 2021 Attending Provider at Admission: Aston Parker MD Attending Provider at Discharge: Aston Parker MD Primary Care Provider: Joe Martinez Reason for Visit Reason for Visit: left total knee arthroplasty Hospital Course Hospital Course The patient tolerated surgery well. They remained hemodynamically stable. They was begun on aspirin and sequential compression devices for DVT prophylaxis. The patient was mobilized with therapy beginning the day of surgery and by the first postoperative day independent with the walker. As the pain was adequately controlled and they were fully mobile they were discharged home. Physical Exam Narrative: EXAM NARRATIVE: On the day of discharge his knee incision was clean. They had no drainage. There is minimal swelling in the thigh and knee and the calf. No distal neurovascular deficits were noted Urinary Catheter Management^: Pagan: Cath Placed During This Visit: yes, but has since been removed by the nurse Reason for Continuing Indwelling Catheter: Perioperative Use in Selected Surgeries Urinary Catheter Date of Insertion: 06/03/21 Urinary Catheter Time of Insertion: 10:15 Date Urinary Catheter Removed: 06/04/21 Time Urinary Catheter Discontinued: 08:15 Discharge Data Data Completed and Pending: Completed Studies During Hospitalization Category Date Time Status XR knee LT 1-2V 7 3560 Stat Exams 06/03/21 11:54 Completed Pending at discharge Category Date Time Status Hemoglobin AM LAB S Lab 06/04/21 04:00 Ordered Vitals: Last Vital Signs Temp 98.1 F 06/04/21 10:21 Pulse 69 06/04/21 10:21 Resp 17 06/04/21 10:21 BP 143/67 06/04/21 10:21 Pulse Ox 96 06/04/21 10:21 Discharge Plan Discharge Patient Disposition: Home Condition: Stable Prescriptions: New oxycodone 5 mg Tablet 5 mg PO Q4H PRN (Reason: Moderate Pain) 7 Days Qty: 30 RF: 0 acetaminophen 500 mg Tablet 1,000 mg PO Q8H 14 Days Qty: 84 RF: 0 gabapentin 300 mg Capsule 300 mg PO BID@0900,2100 7 Days RF: 0 celecoxib 200 mg Capsule 200 mg PO Q12H 14 Days Qty: 28 RF: 0 Continued hydrochlorothiazide 12.5 mg capsule 12.5 mg PO DAILY RF: 0 omeprazole 40 mg capsule,delayed release(DR/EC) 40 mg PO BID RF: 0 simvastatin 40 mg tablet 40 mg PO DAILY RF: 0 tramadol 100 mg tablet 100 mg PO TID PRN (Reason: Pain) RF: 0 ferrous sulfate [FeroSul] 325 mg (65 mg iron) tablet 325 mg PO BID RF: 0 metoprolol succinate 50 mg capsule,sprinkle,ER 24hr 50 mg PO DAILY RF: 0 aspirin 81 mg tablet,delayed release (DR/EC) 81 mg PO DAILY RF: 0 albuterol sulfate [ProAir HFA] 90 mcg/actuation HFA aerosol inhaler 2 puff inhalation Q6H PRN (Reason: shortness of breath or wheezing) Qty: 18 RF: 3 Anoro Ellipta 62.5-25 mcg/actuation blister with device 1 inh inhalation DAILY Qty: 60 RF: 5 fluoxetine 10 mg PO DAILY RF: 0 Discharge Orders: Discharge Order (Routine); Ordered 06/04/21 Ordered By: Aston Parker Referrals: Aston Parker MD [Physician] - 1-3 days (Thursday) Discharge Diet: Advance as tolerated Discharge Activity: Limit activity as instructed Patient Instructions: Opioid Safety Activity Restrictions/Additional Instructions: Okay to shower Keep Tubigauze sleeve in place for swelling. Okay to remove for hygiene. Apply FirstIce up to 20 min/hr for pain and swelling Take Celebrex twice a day for the next 15 days for pain , discontinue other anti-inflammatories Take Neurontin twice a day for 7 days. Take Tylenol 500mg (1-2 tabs) as needed 3 times a day for mild pain take oxycodone for breakthrough pain. Exercises per physical therapy. May weight-bear as tolerated on total knee arthroplasty Discharge Attestations Time Spent in Discharge Care*: other Quality Metrics Clinical Quality Measures During this hospital stay, did patient experience: None Coding Level of Care Code Acute g FW DC note
--- NOTE | 2021-06-04 13:31 | PC.NURSE ---
This RN performed dressing change to left knee via aseptic technique as follows: removed soiled dressing, cleansed wound with saline moistened gauze and patted dry, and covered with [place] dressing. I provided patient education on changing the dressing if it becomes soiled or dislodged prior to seeing Dr. Parker for follow up, but if not to leave in place until f/u appointment with Elena. I provided education on s/s of infection to monitor for, s/s and prophylaxis of post-op pneumonia, importance of controlling pain with PRN pain medications, ice, and rest/relaxation to improve mobility, and when to call Dr. Parker if complications arise. Patient verbalizes understanding and denies any further questions/concerns. Dressings provided to patient to take home if needed after d/c.
--- NOTE | 2021-06-04 17:25 | PC.NURSE ---
Gabapentin prescription called [facility]. [facility] did not show that they received with the additional d/c medications.
== END 2021-06-04 15:15 | disposition home or self-care (01) ==
LOC: OBGYN 12:06
PROVIDERS: Anesthesiology; Admitting Provider Orthopaedic Surgery; PCP Family Medicine; Visit Provider Orthopaedic Surgery
PROC: (CPT 27447; principal; 2021-06-03 09:10)
DX: M17.12 Unilateral primary osteoarthritis, left knee (principal); Z79.82 Long term (current) use of aspirin; K21.9 Gastro-esophageal reflux disease without esophagitis; Z86.73 Personal history of transient ischemic attack (TIA), and cerebral infarction without residual deficits; I12.9 Hypertensive chronic kidney disease with stage 1 through stage 4 chronic kidney disease, or unspecified chronic kidney disease; N18.30 Chronic kidney disease, stage 3 unspecified; Z87.891 Personal history of nicotine dependence; J44.9 Chronic obstructive pulmonary disease, unspecified; Z99.81 Dependence on supplemental oxygen; E78.5 Hyperlipidemia, unspecified
CPT/HCPCS: 27447; 36415; 51702; 64447; 73560; 76942; 80048; 85025; 93005; 96365; 97110; 97116; 97161; 97165; 97530; C1776; G0378; J0171; J0690; J1580; J1885; J2250; J2704; J2795; J3010; J7030

== ENCOUNTER → 2021-07-02 14:57 | Outpatient (BNVA) | payer MEDICARE, OTHER, SELFPAY | PROVIDERS: PCP Family Medicine; Visit Provider Orthopaedic Surgery | DX: Z47.1 Aftercare following joint replacement surgery (principal); Z96.652 Presence of left artificial knee joint; M17.11 Unilateral primary osteoarthritis, right knee | CPT/HCPCS: 73560; 73565 ==

== ENCOUNTER 2021-07-09 06:00 | Outpatient (RCR) | payer MEDICARE, OTHER, SELFPAY | END 2021-07-09 23:59 | disposition home or self-care (01) | LOC: WPT 06:00 | PROVIDERS: PCP Family Medicine; Referring Provider Orthopaedic Surgery; Visit Provider Orthopaedic Surgery | DX: Z47.1 Aftercare following joint replacement surgery (principal); Z96.652 Presence of left artificial knee joint | CPT/HCPCS: 97110; 97112; 97161; 97530 ==

== ENCOUNTER 2021-07-10 06:00 | Outpatient (RCR) | payer MEDICARE, OTHER, SELFPAY | END 2021-08-08 23:59 | disposition home or self-care (01) | LOC: WPT 06:00 | PROVIDERS: PCP Family Medicine; Referring Provider Orthopaedic Surgery; Visit Provider Orthopaedic Surgery | DX: Z47.1 Aftercare following joint replacement surgery (principal); Z96.652 Presence of left artificial knee joint | CPT/HCPCS: 97110; 97112; 97530 ==

== ENCOUNTER 2021-08-09 06:00 | Outpatient (RCR) | payer MEDICARE, OTHER, SELFPAY | END 2021-09-08 23:59 | disposition home or self-care (01) | LOC: WPT 06:00 | PROVIDERS: PCP Family Medicine; Referring Provider Orthopaedic Surgery; Visit Provider Orthopaedic Surgery | DX: Z47.1 Aftercare following joint replacement surgery (principal); Z96.652 Presence of left artificial knee joint | CPT/HCPCS: 97110; 97112; 97116; 97140; 97164; 97530 ==

== ENCOUNTER 2021-09-09 06:00 | Outpatient (RCR) | payer MEDICARE, OTHER, SELFPAY | END 2021-10-08 23:59 | disposition home or self-care (01) | LOC: WPT 06:00 | PROVIDERS: PCP Family Medicine; Referring Provider Orthopaedic Surgery; Visit Provider Orthopaedic Surgery | DX: Z96.652 Presence of left artificial knee joint (principal) | CPT/HCPCS: 97110; 97530 ==

== ENCOUNTER → 2022-01-06 14:11 | Outpatient (BNVA) | payer MEDICARE, OTHER, SELFPAY | PROVIDERS: PCP Family Medicine; Visit Provider Orthopaedic Surgery | DX: M17.11 Unilateral primary osteoarthritis, right knee (principal); M25.561 Pain in right knee | CPT/HCPCS: 73560 ==

== ENCOUNTER → 2022-01-27 09:00 | Day surgery (SDC) | payer MEDICARE, OTHER, SELFPAY | PROVIDERS: PCP Family Medicine; Visit Provider Orthopaedic Surgery | DX: Z01.818 Encounter for other preprocedural examination (principal) | CPT/HCPCS: 93005 ==

== ENCOUNTER → 2022-01-28 00:01 | Outpatient (BNVA) | payer MEDICARE, OTHER, SELFPAY | PROVIDERS: PCP Family Medicine; Visit Provider Orthopaedic Surgery | DX: Z20.822 Contact with and (suspected) exposure to COVID-19 (principal); M17.11 Unilateral primary osteoarthritis, right knee | CPT/HCPCS: 87635 ==

== ENCOUNTER 2022-02-03 09:01 | Observation (INO) | payer MEDICARE, OTHER, SELFPAY ==
[2022-01-27 09:00] VITALS: BMI 33.8
--- NOTE | 2022-01-27 09:01 | ECG_ITS ---
[facility] Test Date: 2022-01-27 Pat Name: Jumana Ignacio Department: Room: Gender: Female Production Finisher: : 1950 Requested By: Prince Ricardo Order Number: [id number] Sony MD: Ana Ramesh M.D. Measurements Intervals [place] Rate: 53 P: 67 NE: 150 QRS: 37 QRSD: 82 T: 38 QT: 431 QTc: 406 Interpretive Statements SINUS BRADYCARDIA Compared to ECG 05/29/2021 14:40:43 No significant changes Electronically Signed On 01-27-2022 20:29:58 CDT by Ana Ramesh M.D. [email or web address] [email or web address] [email or web address] medical [id number]
--- NOTE | 2022-01-27 16:07 | ANES.PREANE2 ---
Pre-Anesthetic Assessment Height/Weight: Height 1.57 m Weight 83.915 kg Preop Diagnosis: Osteoarthritis Left knee Operation Date: 02/03/22 07:00 Proposed Procedures p Right Total Knee Arthroplasty 71298/m17.11(Right) - Aston Parker MD Familial anesthetic complications: none Was Beta Cheryl taken within 24 hours: Yes Was Clonidine taken within 24 hours: N/A Social No alcohol and No tobacco (h/o smoking) Exam alert, oriented x 3, clear to auscultation bilaterally and regular rate & rhythm Airway Submandibular: within normal limits Cervical ROM: within normal limits Mallampati: Class II Dentition: false Pulmonary Chronic Obstructive Pulmonary Disease and Sleep Apnea CV/HEM Anemia and Hypertension GI Gastroesophageal Reflux Disease Metabolic Hyperlipidemia and Morbid Obesity [facility] [place] Osteoarthritis/DJD Anesthetic Plan ASA status: 3 Anesthesia: Regional (specify below) (SAB with adductor blk) Medications/Allergies Home Medications Medication Instructions Recorded Confirmed Last Taken Type aspirin 81 mg tablet,delayed 81 mg PO DAILY 08/14/20 01/27/22 05/30/21 History release ferrous sulfate 325 mg (65 mg 325 mg PO BID 08/14/20 01/27/22 06/01/21 History iron) tablet (FeroSul) hydrochlorothiazide 12.5 mg capsule 12.5 mg PO DAILY 08/14/20 01/27/22 05/30/21 History metoprolol succinate 50 mg capsule 50 mg PO DAILY 08/14/20 01/27/22 06/03/21 06:30 History sprinkle, ext. release 24 hr omeprazole 40 mg capsule,delayed 40 mg PO BID 08/14/20 01/27/22 05/30/21 History release simvastatin 40 mg tablet 40 mg PO DAILY 08/14/20 01/27/22 05/30/21 History tramadol 100 mg tablet 100 mg PO TID PRN 08/14/20 01/27/22 06/03/21 06:30 History fluoxetine 20 mg PO DAILY 05/29/21 01/27/22 06/01/21 History albuterol sulfate 90 mcg/actuation 2 puff INHALATION Q6H PRN #18 g 09/20/21 01/27/22 Unknown Rx aerosol inhaler (ProAir HFA) umeclidinium 62.5 mcg-vilanterol 1 inh INHALATION DAILY #60 ea 09/20/21 01/27/22 Unknown Rx 25 mcg/actuation powdr for inhalation (Anoro Ellipta) Allergies Allergy/AdvReac Type Severity Reaction Status Date / Time gluten Allergy Severe ADR-Diarrhe Verified 01/27/22 08:56 a propoxyphene [From Darvon] AdvReac ADR-Vomitin Verified 01/27/22 08:56 g PFSH Anesthesia Medical History Benign hypertension Celiac sprue COPD (chronic obstructive pulmonary disease) Gastroesophageal reflux disease without esophagitis H/O TIA (transient ischemic attack) and stroke Hiatal hernia Nocturnal hypoxia Osteoarthritis of knee Stage 3 chronic kidney disease Surgical History H/O esophagogastroduodenoscopy History of arthroplasty of knee History of History of carotid angioplasty History of neck surgery History of shoulder surgery Status post colonoscopy Social History Smoking and tobacco status: former smoker Quit status (tobacco): has quit using tobacco Year quit tobacco: 08/25/2007 Former quit date comment: [id number] Second hand smoke exposure: No Smoking risk assessment/counseling performed?: Yes Alcohol intake: current Alcohol intake frequency: holidays/special occasions only Desire information about alcohol rehabilitation?: No Counseling given: No Lives independently: Yes Household members: spouse Housing: House Marital status: service: No Current occupational status: retired Pets and animals: Yes History of recent travel: No Current gender identity: Female Data Anesthesia Cardiac Studies: No Data to Display
[2022-02-03] VITALS (14 sets, daily range): BP systolic 121–165; BP diastolic 54–94; PULSE 57–74; RESP 12–18; TEMP 36.2–36.6; O2SAT 92–97
[2022-02-03] MEDS: gabapentin 300 mg Capsule PO (05:59)
[2022-02-03] MEDS: CELEcoxib 200 mg Capsule 400 MG PO (05:59)
[2022-02-03] MEDS: sodium chloride 0.9% 1,000 ML 30 ML IV (05:59)
[2022-02-03] MEDS: oxyCODONE 20 mg ER (12 HR) Tablet PO (05:59)
[2022-02-03] MEDS: acetaminophen 500 mg Tablet 1000 MG PO ×2 (06:00→17:28)
--- NOTE | 2022-02-03 06:50 | P.ANESUD_ITS ---
Pre-Anesthetic Update Pre-Anesthetic Assessment: Date of Surgery/Procedure: 02/03/22 Preop Subha gnosis: Osteoarthritis Right knee Proposed Procedure: Operation Date: 02/03/22 07:00 Proposed Procedures p Right Total Knee Arthroplasty 37208/m17.11(Right) - Aston Parker MD Any changes to Pre-Anesthetic Assessment?: No Last Intake: Intake Last Liquid Date 02/02/22 Last Liquid Time 11:45 Last Solid Date 02/02/22 Last Solid Time 21:00 Vitals: Temperature 97.2 F L 02/03/22 05:39 Temperature Source Temporal Artery S can 02/03/22 05:39 Pulse Rate 62 02/03/22 05:39 Respiratory Rate 18 02/03/22 05:39 Blood Pressure 165/85 02/03/22 05:39 Blood Pressure Kayleigh n 111 02/03/22 05:39 Pulse Oximetry 96 02/03/22 05:39 Oxygen Delivery Me thod 02/03/22 05:46 Exam: Pre-Anes Outpt Exam: alert, oriented x 3, clear to auscultation bilaterally and regular rate & rhythm Cardiac Studies: No Data to Display
--- NOTE | 2022-02-03 06:59 | P.HP_ITS ---
Same Day Surgery H&P Indication for Procedure/HPI DATE OF PROCEDURE: February 03, 2022 CHIEF COMPLAINT/INDICATIONFOR SURGICAL PROCEDURE: Osteoarthritis right knee here for right total knee arthroplasty PREOP DIAGNOSIS: Osteoarthritis Right knee PLANNED PROCEDURE: Operation Date: 02/03/22 07:00 Proposed Procedures p Right Total Knee Arthroplasty 73298/m17.11(Right) - Aston Parker MD 71-year-old female with bilateral osteoarthritis of the knees. Underwent left total knee arthroplasty in April now here for right total knee arthroplasty Medications/Allergies* Home Medications Medication Instructions Recorded Confirmed Type aspirin 81 mg tablet,delayed 81 mg PO DAILY 08/14/20 02/03/22 History release ferrous sulfate 325 mg (65 mg 325 mg PO BID 08/14/20 02/03/22 History iron) tablet (FeroSul) hydrochlorothiazide 12.5 mg capsule 12.5 mg PO DAILY 08/14/20 02/03/22 History metoprolol succinate 50 mg capsule 50 mg PO DAILY 08/14/20 02/03/22 History sprinkle, ext. release 24 hr omeprazole 40 mg capsule,delayed 40 mg PO BID 08/14/20 02/03/22 History release simvastatin 40 mg tablet 40 mg PO DAILY 08/14/20 02/03/22 History tramadol 100 mg tablet 100 mg PO TID PRN 08/14/20 02/03/22 History fluoxetine 20 mg PO DAILY 05/29/21 02/03/22 History Allergies/Adverse Reactions Allergy/AdvReac Type Severity Reaction Status Date / Time gluten Allergy Severe ADR-Diarrhe Verified 01/27/22 08:56 a propoxyphene [From Darvon] AdvReac ADR-Vomitin Verified 01/27/22 08:56 g Current Medications: Generic Name Dose Route Start Last Admin Trade Name Freq PRN Reason Stop Dose Admin Sodium Chloride 1,000 mls @ 30 mls/hr 02/03/22 05:30 02/03/22 05:59 Sodium Chloride 0.9% IV 02/04/22 05:29 30 mls/hr .Q24H ASTRID Administration Pertinent History/Comorbid Conditions* Medical History (Updated 01/06/22 @ 14:09 by Aston Parker MD) Benign hypertension Celiac sprue COPD (chronic obstructive pulmonary disease) Gastroesophageal reflux disease without esophagitis H/O TIA (transient ischemic attack) and stroke Hiatal hernia Nocturnal hypoxia Osteoarthritis of knee Stage 3 chronic kidney disease Surgical History (Updated 06/04/21 @ 07:56 by Aston Parker MD) H/O esophagogastroduodenoscopy History of arthroplasty of knee History of History of carotid angioplasty History of neck surgery History of shoulder surgery Status post colonoscopy Social History Smoking and tobacco status: former smoker Quit status (tobacco): has quit using tobacco Year quit tobacco: 08/25/2007 Former quit date comment: [id number] Second hand smoke exposure: No Smoking risk assessment/counseling performed?: Yes Alcohol intake: current Alcohol intake frequency: holidays/special occasions only Desire information about alcohol rehabilitation?: No Counseling given: No Lives independently: Yes Household members: spouse Housing: House Marital status: service: No Current occupational status: retired Pets and animals: Yes History of recent travel: No Current gender identity: Female Pertinent Exam Findings alert, oriented x 3, clear to auscultation bilaterally and regular rate & rhythm Recommendations Surgery/Procedure today Coding Level of Care Code Acute Machine Cutter for Yesi Milner
[2022-02-03] MEDS: tranexamic acid 1,000 mg/10mL SDV 1000 MG IV (07:35)
[2022-02-03] MEDS: ketorolac 30 mg/mL INJ XX (07:57)
[2022-02-03] MEDS: EPINEPHrine 1 mg/mL INJ XX (07:57)
[2022-02-03] MEDS: tranexamic acid 1,000 mg/10mL SDV 1000 MG XX (07:58)
--- NOTE | 2022-02-03 09:06 | XR_ITS ---
WS: [id number] Exam: XR knee RT 1-2V 51366 Date/Time of Exam: 02/03/2022 9:09 AM Reason For Exam: Right Total Knee arthroplasty Comparison 01/06/2022. A total knee prosthesis has been placed and is in excellent position. Postoperative changes of the ad jacent soft tissues. XR/XR knee RT 1-2V 20759 IMPRESSION: 1. Total knee replacement in excellent position.
--- NOTE | 2022-02-03 09:08 | P.OP_ITS ---
Operative Report Date of procedure: February 03, 2022 Pre-op diagnosis: Preop Diagnosis Osteoarthritis Right knee Post-op diagnosis: same Post-op diagnosis: Same Post-op findings: Same Procedure done: Right total knee arthroplasty Implants: Nicole total knee arthroplasty components were used includin) Size 4 triathalon cruciate retaining femoral component 2) Size 3 Tritanium tibial component 3) 32 mm /10 mm thickness Tritanium asymetric patella 4) Size 3/11 mm thickness CR tibial bearing insert Pathology: none sent Surgeon: Aston Parker Anesthesia: Nerve Block (Spinal, adductor canal block) Estimated blood loss (mL): 50 Findings: Patient had severe eburnation of her medial femoral condyle, medial tibial plateau and patella Condition: stable Disposition: PACU Procedure: The patient was taken to the operating room. Patient was given 1 g of tranexamic acid . The above anesthesia provided by the anesthesia service. A timeout was performed. The patient was prepped and draped in the usual fashion with the lower extremity exposed. A anterior incision was made, midline, from a point proximal to the patella to the distal tibial tubercle. The knee was entered through a medial parapatellar approach. The patella could be displaced laterally and the knee flexed. The patellar fat pad was resected to provide better visibility. Retractors were placed medially and laterally adjacent to the tibial plateau. The femoral canal was drilled in line with the longitudinal axis of the femur. Intramedullary femoral guide for used to make a distal femoral cut in 5 degrees of valgus, resecting 8 mm from the more prominent condyle. Next the extra medullary tibial guide was placed in alignment with the longitudinal axis of the tibia. The cutting guides were set to remove just over 9 mm from the high tibial plateau. The proximal tibia was then cut. The femoral measuring guide was then placed over the distal femur. Rotation was verified checking the relationship of the guide to the condyle and the trochlear groove. The femur was measured and cut for the desired femoral component. The desired tibial bas eplate was then chosen. A trial reduction with the femur tibial baseplate and polyethylene was done, assuring that the knee was stable throughout full motion. Ligament balancing nothing more than released the deep medial collateral ligament and removal of medial osteophytes.The tibia was prepared for the tibial baseplate. Patellar thickness was then measured. The patella was cut removing articular cartilage and prepared for appropriate size patellar button. surfaces were cleaned with a gentamicin solution. The femur tibia and patella were then press- fit into place. The posterior capsule and collateral ligaments were then injected with a solution of 100 mL of 0.2% ropivacaine, 1 mL of a 1:1000 epinephrine solution, 30 mg of Toradol, and 1 g of tranexamic acid. Final polyethylene component was then snapped into place into the tibia. The extensor retinaculum was closed with a running 1 Stratafix interrupted 1 Ethibond. The subcutaneous tissues were closed with 2-0 Vicryl and the skin was closed with a running 4-0 Stratafix. The wound was covered with a Dermabond Prineo dressing. It was covered with 4xrs and a compressive Tubigauze was applied. The patient was taken to recovery room in stable condition.
[2022-02-03] MEDS: oxyCODONE 5 mg IR Tab/Cap PO (10:08)
--- NOTE | 2022-02-03 10:30 | PC.NURSE ---
Physical therapy here with doing exercises and getting pt up and ambulating.
[2022-02-03] MEDS: TRAMadol 50 mg Tablet 100 MG PO (11:04)
--- NOTE | 2022-02-03 12:17 | ANE.PACU2 ---
Inpatient post-anesthesia follow up: Airway intact: Yes Vital signs: Temperature 97.9 F Pulse Rate 58 Respiratory Rate 17 Blood Pressure 131/54 Pulse Oximetry 93 Oxygen Delivery Me thod Room Air Oxygen Flow Rate Fraction of Inspir ed Oxygen Hydration adequate: Yes Nausea and vomiting: No Pain level: 5 Mental status: Baseline
[2022-02-03] MEDS: oxyCODONE 5 mg IR Tab/Cap 10 MG PO ×2 (12:27→17:29)
[2022-02-03] MEDS: morphine 4 mg/mL SDV 1 mL IVP (14:06)
[2022-02-03] MEDS: ondansetron 2 mg/ML SDV 2 mL 4 MG IVP ×2 (14:16→19:42)
[2022-02-03] MEDS: calcium carbonate 500 mg Chew Tablet 1000 MG PO (15:11)
--- NOTE | 2022-02-03 16:39 | P.ANES_ITS ---
Anesthesia Procedures Procedure/Date: 02/03/22 Nerve Block ^: Nerve Block 1: Main Anesthesia: spinal anesthesia block Time Out Performed: Yes (0076) Consent: requested by attending/covering physician, from patient, risks and benefits reviewed and patient agrees to proceed Nerve block location: adductor canal Anesthesia monitors applied: pulse oximetry, EKG, BP cuff and oxygen Nerve block position: supine Anesthetic Used: bupivacaine 0.5% Amount of anesthesia used (mL): 20 Ultrasound used to: recognize landmarks and visualize and ID femerol nerve Nerve Stimulator Used?: No Interscalene/Femoral BLK: 4 stimuplex 21 g needle used for position and inplane approach Injection: neg aspiration of heme Patient Tolerated Procedure: well Complications: none Additional Comments: After time out sterile prep, using sterile technique, and using real time US guidance for target selection needle was inserted with real time visualization of needle entry and real time visualization of needle advancement toward intended target. Negative aspiration. LA injected incrementally with negative as piration every 5 cc and real time US visualization of LA spread throughout procedure. Tolerated well. Image(s) saved.
[2022-02-03] MEDS: CELEcoxib 200 mg Capsule PO (17:29)
[2022-02-03] MEDS: ferrous sulfate EC 325 mg Tablet PO (17:30)
[2022-02-03] MEDS: pantoprazole DR 40 mg Tablet PO (17:30)
[2022-02-03] MEDS: sodium chloride 0.9% 1,000 ML 100 ML IV (20:25)
[2022-02-04] VITALS (7 sets, daily range): BP systolic 113–134; BP diastolic 60–78; PULSE 69–96; RESP 17–18; TEMP 36.6–36.7; O2SAT 93–98
[2022-02-04] MEDS: acetaminophen 500 mg Tablet 1000 MG PO ×2 (00:41→09:47)
[2022-02-04] MEDS: oxyCODONE 5 mg IR Tab/Cap 10 MG PO ×2 (00:41→08:08)
[2022-02-04 04:23] LABS: Hemoglobin 9.1 g/dL (11.5-15.3)
[2022-02-04] MEDS: CELEcoxib 200 mg Capsule PO (06:28)
--- NOTE | 2022-02-04 07:59 | P.DS_ITS ---
Discharge Providers Date of Admission: 02/03/22 09:01 Date of Discharge: February 04, 2022 Attending Provider at Admission: Aston Osborn MD Attending Provider at Discharge: Aston Osborn MD Primary Care Provider: Joe Hurstno Diagnoses at Discharge Discharge Diagnosis (1) Status post right knee replacement: Status: Acute (2) Osteoarthritis of right knee: Status: Resolved Reason for Visit Reason for Visit: osteoarthritis Hospital Course Hospital Course The patient tolerated surgery well. They remained hemodynamically stable. They was begun on aspirin and foot pumps for DVT prophylaxis. The patient was mobilized with therapy beginning the day of surgery and by the first postoperative day independent with the walker. As the pain was adequately controlled and they were fully mobile they were discharged home. Physical Exam Narrative: On the day of discharge the knee incision was clean. They had no drainage. There is minimal swelling in the thigh and knee and the calf. No distal neurovascular deficits were noted Discharge Data Studies Completed and Pending Completed Studies During Hospitalization Category Date Time Status XR knee RT 1-2V 29009 Routine Exams 02/03/22 09:06 Completed Radiology Impressions Knee X-Ray 02/03/22 09:06 IMPRESSION: 1. Total knee replacement in excellent position. Laboratory Results Hgb 9.1 g/dL (11.5-15.3) L 02/04/22 04:18 Vitals Last Vital Signs Temp 97.9 F 02/04/22 03:22 Pulse 72 02/04/22 03:22 Resp 17 02/04/22 00:41 BP 134/78 02/04/22 03:22 Pulse Ox 96 02/04/22 03:22 Discharge Plan Discharge Patient Disposition: Home Condition: Stable Prescriptions: New oxycodone 5 mg Tablet 5 mg PO Q3H PRN (Reason: Moderate Pain) 7 Days Qty: 40 0RF acetaminophen 500 mg Tablet 1,000 mg PO Q8H 14 Days Qty: 84 0RF celecoxib 200 mg Capsule 200 mg PO Q12H 14 Days Qty: 28 0RF Continued hydrochlorothiazide 12.5 mg capsule 12.5 mg PO DAILY 0RF omeprazole 40 mg capsule,delayed release(DR/EC) 40 mg PO BID 0RF simvastatin 40 mg tablet 40 mg PO DAILY 0RF tramadol 100 mg tablet 100 mg PO TID PRN (Reason: Pain) 0RF ferrous sulfate [FeroSul] 325 mg (65 mg iron) tablet 325 mg PO BID 0RF metoprolol succinate 50 mg capsule,sprinkle,ER 24hr 50 mg PO DAILY 0RF aspirin 81 mg tablet,delayed release (DR/EC) 81 mg PO DAILY 0RF albuterol sulfate [ProAir HFA] 90 mcg/actuation HFA aerosol inhaler 2 puff inhalation Q6H PRN (Reason: shortness of breath or wheezing) Qty: 18 3RF Anoro Ellipta 62.5-25 mcg/actuation blister with device 1 inh inhalation DAILY Qty: 60 5RF Rx Instructions: 340B fluoxetine 20 mg PO DAILY 0RF Discharge Orders: Discharge Order (Routine); Ordered 02/04/22 Ordered By: Aston Osborn Referrals: [facility] ([facility]) [Outside] Aston Osborn MD [Physician] - 02/06/22 2:30 pm Discharge Diet: Advance as tolerated Discharge Activity: Limit activity as instructed Patient Instructions: Opioid Safety Activity Restrictions/Additional Instructions: Okay to shower Keep Tubigauze sleeve in place for swelling. Okay to remove for hygiene. Apply FirstIce up to 20 min/hr for pain and swelling Take Celebrex twice a day for the next 15 days for pain , discontinue other anti-inflammatories Take Tylenol 500mg (2 tabs) as needed 3 times a day for mild pain Take Ultram for moderate pain take oxycodone for severe breakthrough pain. Exercises per physical therapy. May weight-bear as tolerated on total knee arthroplasty IF HAVE ANY PROBLEMS OR QUESTIONS CALL HOSPITAL PLEAT TAPER AT AND ASK TO HAVE DR. OSBORN PAGED. Discharge Attestations Time Spent in Discharge Care*: other Quality Metrics Clinical Quality Measures [ No reported AMI, CVA or VTE this stay] Coding Level of Care Code Acute [facility] FW [place] note Diagnoses Status post right knee replacement Z96.651 Osteoarthritis of right knee M17.11
[2022-02-04] MEDS: aspirin 81 mg EC Tablet PO (09:46)
[2022-02-04] MEDS: metoprolol succinate ER (24 HR) 50 mg Tablet PO (09:46)
[2022-02-04] MEDS: pantoprazole DR 40 mg Tablet PO (09:46)
[2022-02-04] MEDS: ferrous sulfate EC 325 mg Tablet PO (09:46)
[2022-02-04] MEDS: fluoxetine 20 mg Capsule PO (09:46)
[2022-02-04] MEDS: atorvastatin 40 mg Tablet 20 MG PO (09:47)
[2022-02-04] MEDS: hydroCHLOROthiazide 25 mg Tablet 12.5 MG PO (09:47)
== END 2022-02-04 10:55 | disposition home or self-care (01) ==
LOC: OBGYN 09:04
PROVIDERS: Admitting Provider Orthopaedic Surgery; PCP Family Medicine; Visit Provider Orthopaedic Surgery
PROC: (CPT 27447; principal; 2022-02-03 07:00)
DX: M17.11 Unilateral primary osteoarthritis, right knee (principal); Z79.82 Long term (current) use of aspirin; J44.9 Chronic obstructive pulmonary disease, unspecified; Z86.73 Personal history of transient ischemic attack (TIA), and cerebral infarction without residual deficits; I12.9 Hypertensive chronic kidney disease with stage 1 through stage 4 chronic kidney disease, or unspecified chronic kidney disease; N18.30 Chronic kidney disease, stage 3 unspecified; Z87.891 Personal history of nicotine dependence; G47.30 Sleep apnea, unspecified; K21.9 Gastro-esophageal reflux disease without esophagitis; E78.5 Hyperlipidemia, unspecified; E66.01 Morbid (severe) obesity due to excess calories; Z68.33 Body mass index [BMI] 33.0-33.9, adult
CPT/HCPCS: 27447; 36415; 64447; 73560; 76942; 85018; 97110; 97116; 97161; 97165; C1776; G0378; J0171; J0690; J1580; J1885; J2250; J2270; J2405; J2704; J2795; J3010; J3490; J7030

== ENCOUNTER → 2022-03-04 14:50 | Outpatient (BNVA) | payer MEDICARE, OTHER, SELFPAY | PROVIDERS: PCP Family Medicine; Visit Provider Orthopaedic Surgery | DX: Z96.651 Presence of right artificial knee joint (principal); Z87.891 Personal history of nicotine dependence | CPT/HCPCS: 73560; 73565 ==

== ENCOUNTER 2022-03-19 06:00 | Outpatient (RCR) | payer MEDICARE, OTHER, SELFPAY | END 2022-04-08 23:59 | disposition home or self-care (01) | LOC: WPT 06:00 | PROVIDERS: PCP Family Medicine; Referring Provider Orthopaedic Surgery; Visit Provider Orthopaedic Surgery | DX: Z47.1 Aftercare following joint replacement surgery (principal); Z96.651 Presence of right artificial knee joint | CPT/HCPCS: 97110; 97112; 97161 ==

== ENCOUNTER 2022-04-09 06:00 | Outpatient (RCR) | payer MEDICARE, OTHER, SELFPAY | END 2022-05-08 23:59 | disposition home or self-care (01) | LOC: WPT 06:00 | PROVIDERS: PCP Family Medicine; Referring Provider Orthopaedic Surgery; Visit Provider Orthopaedic Surgery | DX: Z47.1 Aftercare following joint replacement surgery (principal); Z96.651 Presence of right artificial knee joint | CPT/HCPCS: 97110; 97530 ==

== ENCOUNTER 2022-05-09 06:00 | Outpatient (RCR) | payer MEDICARE, OTHER, SELFPAY | END 2022-06-08 23:59 | disposition home or self-care (01) | LOC: WPT 06:00 | PROVIDERS: PCP Family Medicine; Referring Provider Orthopaedic Surgery; Visit Provider Orthopaedic Surgery | DX: Z47.1 Aftercare following joint replacement surgery (principal); Z96.651 Presence of right artificial knee joint | CPT/HCPCS: 97110; 97116 ==

== ENCOUNTER 2022-05-14 13:00 | Outpatient (CLI) | payer MEDICARE, OTHER, SELFPAY ==
--- NOTE | 2022-05-14 13:16 | CT_ITS ---
WS: [id number] LDCT LUNG CANCER SCREENING TECHNIQUE: Noncontrast CT of the chest with coronal and sagittal reformatted images. CLINICAL INFORMATION: Z87.891 - Personal history of nicotine dependence COMPARISON: CT September 10, 2020 DLP: 75.91 mGy.cm DIvol: Mean CTDIvol: 1.60 (mGy) All CT scans at [facility] use at least one of these dose optimization techniques: automat ed exposure control; mA and/or kV adjustment per patient size (includes targeted exams where dose is matched to clinical indication); or iterative reconstruction. FINDINGS: Chronic emphysematous changes. Prominent central pulmonary arteries can be seen with pulmonary arteri al hypertension similar to previous. Large esophageal hiatal hernia with intrathoracic stomach in the posterior mediastinum retrocardiac location unchanged. Normal caliber thoracic aorta. Mild aortic ca lcification. Mild coronary calcification. No mediastinal or hilar lymphadenopathy. A few incidental c alcified granulomas. Adrenal glands are normal. Cholelithiasis partially visualized. This can be followed up with ultrasou nd. Mild thoracic kyphosis. Chronic compression in the lower thoracic and upper lumbar spine with ant erior hypertrophic changes. CT/CT lung screening 19026 IMPRESSION: Partially visualized Cholelithiasis can be further evaluated with u ltrasound. LUNG-RADS: 1S-Negative with Significant Findings FOLLOW UP: 12 Month: Continue annual screening with LDCT
== END 2022-05-14 13:01 | disposition home or self-care (01) ==
PROVIDERS: PCP Family Medicine; Visit Provider Internal Medicine Pulmonary Disease
DX: Z87.891 Personal history of nicotine dependence (principal)
CPT/HCPCS: 71271

== ENCOUNTER → 2022-06-03 09:45 | Outpatient (BNVA) | payer MEDICARE, OTHER, SELFPAY | PROVIDERS: PCP Family Medicine; Visit Provider Surgery | DX: Z86.010 Personal history of colon polyps (principal); K63.5 Polyp of colon; R10.13 Epigastric pain; K44.9 Diaphragmatic hernia without obstruction or gangrene | CPT/HCPCS: 99214 ==

== ENCOUNTER 2022-06-09 06:00 | Outpatient (RCR) | payer MEDICARE, OTHER, SELFPAY | END 2022-07-09 23:59 | disposition home or self-care (01) | LOC: WPT 06:00 | PROVIDERS: PCP Family Medicine; Referring Provider Orthopaedic Surgery; Visit Provider Orthopaedic Surgery | DX: Z96.652 Presence of left artificial knee joint (principal) | CPT/HCPCS: 97110; 97112 ==

== ENCOUNTER 2022-06-10 09:28 | Day surgery (SDC) | payer MEDICARE, OTHER, SELFPAY ==
[2022-06-10 10:03] VITALS: BP 165/86; PULSE 56; RESP 16; TEMP 36.3; O2SAT 98
--- NOTE | 2022-06-10 10:11 | W.PM.OPSFHP ---
Same Day Surgery H&P Indication for Procedure/HPI DATE OF PROCEDURE: June 10, 2022 CHIEF COMPLAINT/INDICATIONFOR SURGICAL PROCEDURE: egd/colonoscopy PREOP DIAGNOSIS: diagnostic PLANNED PROCEDURE: Operation Date: 06/10/22 11:00 Proposed Procedures p EGD(Not Applicable) - Teddy Diaz MD s EGD and colonoscopy [id number],R10.13(Not Applicable) - Teddy Diaz MD Medications/Allergies* Home Medications Medication Instructions Recorded Confirmed Type aspirin 81 mg tablet,delayed 81 mg PO DAILY 08/14/20 06/09/22 History release ferrous sulfate 325 mg (65 mg 325 mg PO BID 08/14/20 06/09/22 History iron) tablet (FeroSul) hydrochlorothiazide 12.5 mg capsule 12.5 mg PO DAILY 08/14/20 06/09/22 History metoprolol succinate 50 mg capsule 50 mg PO DAILY 08/14/20 06/09/22 History sprinkle, ext. release 24 hr omeprazole 40 mg capsule,delayed 40 mg PO BID 08/14/20 06/09/22 History release simvastatin 40 mg tablet 40 mg PO DAILY 08/14/20 06/09/22 History tramadol 100 mg tablet 100 mg PO TID PRN Pain 08/14/20 06/09/22 History fluoxetine 20 mg PO DAILY 05/29/21 06/09/22 History Allergies/Adverse Reactions Allergy/AdvReac Type Severity Reaction Status Date / Time gluten Allergy Severe ADR-Diarrhe Verified 06/03/22 09:58 a propoxyphene [From Darvon] AdvReac ADR-Vomitin Verified 06/03/22 09:58 g Pertinent History/Comorbid Conditions* Medical History (Updated 02/04/22 @ 07:57 by Aston Parker MD) Benign hypertension Celiac sprue COPD (chronic obstructive pulmonary disease) Gastroesophageal reflux disease without esophagitis H/O TIA (transient ischemic attack) and stroke Hiatal hernia Nocturnal hypoxia Osteoarthritis of knee Stage 3 chronic kidney disease Surgical History (Updated 02/04/22 @ 07:57 by Aston Parker MD) H/O esophagogastroduodenoscopy History of arthroplasty of knee History of History of carotid angioplasty History of neck surgery History of shoulder surgery Status post colonoscopy Social History Smoking and tobacco status: former smoker Quit status (tobacco): has quit using tobacco Year quit tobacco: 08/25/2007 Former quit date comment: [id number] Second hand smoke exposure: No Smoking risk assessment/counseling performed?: Yes Alcohol intake: current Alcohol intake frequency: holidays/special occasions only Desire information about alcohol rehabilitation?: No Counseling given: No Lives independently: Yes Household members: spouse Housing: House Marital status: service: No Current occupational status: retired Pets and animals: Yes History of recent travel: No Current gender identity: Female Pertinent Exam Findings alert, oriented x 3 and regular rate & rhythm Recommendations Surgery/Procedure today Coding Level of Care Code Acute [employer] [employer]
[2022-06-10] MEDS: sodium chloride 0.9% 1,000 ML 30 ML IV (10:16)
[2022-06-10 11:22] VITALS: BP 96/69; PULSE 60; RESP 16; TEMP 36.2; O2SAT 92
[2022-06-10 11:35] VITALS: BP 105/64; PULSE 66; RESP 18; O2SAT 97
--- NOTE | 2022-06-10 12:37 | ANES.PREANE2 ---
Pre-Anesthetic Assessment Height/Weight: Height 1.57 m Weight 79.379 kg Temp Pulse Resp BP Pulse Ox O2 Del Method O2 Flow Rate 97.2 F L 66 18 105/64 97 2 06/10/22 11:22 06/10/22 11:35 06/10/22 11:35 06/10/22 11:35 06/10/22 11:35 06/10/22 11:35 06/10/22 11:22 Preop Diagnosis: diagnostic Operation Date: 06/10/22 11:00 Proposed Procedures p EGD(Not Applicable) - Teddy Diaz MD s EGD and colonoscopy 03252,94147,R10.13(Not Applicable) - Teddy Diaz MD Familial anesthetic complications: none Was Beta Cheryl taken within 24 hours: Yes Was Clonidine taken within 24 hours: N/A Last intake: Intake Last Liquid Date 06/09/22 Last Liquid Time 22:30 Last Solid Date 06/08/22 Last Solid Time 20:00 Social No alcohol and No tobacco Exam alert, oriented x 3 and regular rate & rhythm Airway Submandibular: within normal limits Cervical ROM: within normal limits Mallampati: Class II Pulmonary Chronic Obstructive Pulmonary Disease and Sleep Apnea CV/HEM Hypertension Chronic Renal Insufficiency GI Gastroesophageal Reflux Disease Metabolic Hyperlipidemia [facility] [place] Osteoarthritis/DJD Anesthetic Plan ASA status: 3 Anesthesia: MAC Medications/Allergies Home Medications Medication Instructions Recorded Confirmed Last Taken Type aspirin 81 mg tablet,delayed 81 mg PO DAILY 08/14/20 06/09/22 06/08/22 History release ferrous sulfate 325 mg (65 mg 325 mg PO BID 08/14/20 06/09/22 06/05/22 History iron) tablet (FeroSul) hydrochlorothiazide 12.5 mg capsule 12.5 mg PO DAILY 08/14/20 06/09/22 06/08/22 History metoprolol succinate 50 mg capsule 50 mg PO DAILY 08/14/20 06/09/22 06/09/22 History sprinkle, ext. release 24 hr omeprazole 40 mg capsule,delayed 40 mg PO BID 08/14/20 06/09/22 06/05/22 History release simvastatin 40 mg tablet 40 mg PO DAILY 08/14/20 06/09/22 06/09/22 History tramadol 100 mg tablet 100 mg PO TID PRN Pain 08/14/20 06/09/22 06/09/22 History fluoxetine 20 mg PO DAILY 05/29/21 06/09/22 06/05/22 History albuterol sulfate 90 mcg/actuation 2 puff inhalation Q6H PRN 09/20/21 06/09/22 06/08/22 Rx aerosol inhaler (ProAir HFA) shortness of breath or wheezing #18 grams umeclidinium 62.5 mcg-vilanterol 1 inh inhalation DAILY copd #60 ea 09/20/21 06/09/22 06/05/22 Rx 25 mcg/actuation powdr for inhalation (Anoro Ellipta) Allergies Allergy/AdvReac Type Severity Reaction Status Date / Time gluten Allergy Severe ADR-Diarrhe Verified 06/03/22 09:58 a propoxyphene [From Darvon] AdvReac ADR-Vomitin Verified 06/03/22 09:58 g PFSH Anesthesia Medical History Benign hypertension Celiac sprue COPD (chronic obstructive pulmonary disease) Gastroesophageal reflux disease without esophagitis H/O TIA (transient ischemic attack) and stroke Hiatal hernia Nocturnal hypoxia Osteoarthritis of knee Stage 3 chronic kidney disease Surgical History (Updated 06/10/22 @ 11:26 by Teddy Diaz MD) H/O esophagogastroduodenoscopy (06/10/22) History of arthroplasty of knee History of History of carotid angioplasty History of neck surgery History of shoulder surgery Status post colonoscopy (06/10/22) Social History Smoking and tobacco status: former smoker Quit status (tobacco): has quit using tobacco Year quit tobacco: 08/25/2007 Former quit date comment: [id number] Second hand smoke exposure: No Smoking risk assessment/counseling performed?: Yes Alcohol intake: current Alcohol intake frequency: holidays/special occasions only Desire information about alcohol rehabilitation?: No Counseling given: No Lives independently: Yes Household members: spouse Housing: House Marital status: service: No Current occupational status: retired Pets and animals: Yes History of recent travel: No Current gender identity: Female Data Anesthesia Cardiac Studies: No Data to Display
--- NOTE | 2022-06-10 12:41 | ANE.PACU2 ---
Inpatient post-anesthesia follow up: Airway intact: Yes Vital signs: Temperature 97.2 F Pulse Rate 66 Respiratory Rate 18 Blood Pressure 105/64 Pulse Oximetry 97 Oxygen Delivery Me thod Room Air Oxygen Flow Rate 2 Fraction of Inspir ed Oxygen Hydration adequate: Yes Nausea and vomiting: No Pain level: 1 Mental status: Baseline
== END 2022-06-10 12:00 | disposition home or self-care (01) ==
PROVIDERS: PCP Family Medicine; Visit Provider Surgery
PROC: 0DJ08ZZ Inspection of Upper Intestinal Tract, Via Natural or Artificial Opening Endoscopic (ICD-10-PCS; CPT 43235; principal; 2022-06-10 11:00)
PROC: 0DJD8ZZ Inspection of Lower Intestinal Tract, Via Natural or Artificial Opening Endoscopic (ICD-10-PCS; CPT 45378; 2022-06-10 11:00)
DX: Z86.010 Personal history of colon polyps (principal); R10.13 Epigastric pain; K44.9 Diaphragmatic hernia without obstruction or gangrene; D12.4 Benign neoplasm of descending colon; K57.30 Diverticulosis of large intestine without perforation or abscess without bleeding; K64.8 Other hemorrhoids
CPT/HCPCS: 43235; 45385; 88305; J2001; J2704; J7030

== ENCOUNTER → 2022-06-17 12:10 | Outpatient (BNVA) | payer MEDICARE, OTHER, SELFPAY | PROVIDERS: PCP Family Medicine; Visit Provider Surgery | DX: Z09 Encounter for follow-up examination after completed treatment for conditions other than malignant neoplasm (principal) | CPT/HCPCS: 99213 ==

== ENCOUNTER 2022-07-17 14:29 | Outpatient (CLI) | payer MEDICARE, OTHER, SELFPAY ==
--- NOTE | 2022-07-17 14:36 | MM_ITS ---
WS: [id number] BILATERAL 3D TOMOSYNTHESIS DIGITAL SCREENING MAMMOGRAPHY WITH CAD CLINICAL INFORMATION: SCREENING HISTORY: Screening mammogram. No current complaints. COMPARISON: January 30, 2021 TECHNIQUE: Bilateral CC and MLO views. FINDINGS: Scattered fibroglandular densities bilaterally. Punctate and lucent centered calcifications. Vascular calcification. No suspicious focal mass, asymmetry, calcifications, or architectural distortion. No evidence of malignancy. MM/[place] [id number] IMPRESSION: BI-RADS: 2-Benign FOLLOW UP: 1 Year Follow-up Recommend return to annual screening mammography.
== END 2022-07-17 14:30 | disposition home or self-care (01) ==
LOC: RAD 14:31
PROVIDERS: PCP Family Medicine; Visit Provider Family Medicine
DX: Z12.31 Encounter for screening mammogram for malignant neoplasm of breast (principal)
CPT/HCPCS: 77063; 77067

== ENCOUNTER 2023-01-22 06:00 | Outpatient (RCR) | payer MEDICARE, OTHER, SELFPAY ==
--- NOTE | 2023-01-23 07:17 | PC.PULMREH ---
Patient attended Pulmonary Rehabilitation Education Class.
== END 2023-02-06 23:59 | disposition home or self-care (01) ==
LOC: WPT 06:00
PROVIDERS: PCP Family Medicine; Visit Provider Internal Medicine Pulmonary Disease
DX: J43.2 Centrilobular emphysema (principal); G47.33 Obstructive sleep apnea (adult) (pediatric); Z96.652 Presence of left artificial knee joint; M17.11 Unilateral primary osteoarthritis, right knee
CPT/HCPCS: 97110; 97112; 97161; 97530

== ENCOUNTER 2023-01-22 13:04 | Outpatient (CLI) | payer MEDICARE, OTHER, SELFPAY ==
[2023-01-22 13:32] VITALS: PULSE 73; RESP 18; O2SAT 98
[2023-01-22] MEDS: albuterol 2.5 mg/3 mL Neb INHALATION (13:32)
== END 2023-01-22 13:05 | disposition home or self-care (01) ==
LOC: RT 13:09
PROVIDERS: PCP Family Medicine; Visit Provider Internal Medicine Pulmonary Disease
DX: J44.9 Chronic obstructive pulmonary disease, unspecified (principal)
CPT/HCPCS: 94060; 94618; 94726; 94729; J7613

== ENCOUNTER 2023-02-07 06:00 | Outpatient (RCR) | payer MEDICARE, OTHER, SELFPAY | END 2023-03-08 23:59 | disposition home or self-care (01) | LOC: WPT 06:00 | PROVIDERS: PCP Family Medicine; Visit Provider Internal Medicine Pulmonary Disease | DX: M62.81 Muscle weakness (generalized) (principal) | CPT/HCPCS: 97110; 97112; 97530 ==

== ENCOUNTER 2023-03-09 06:00 | Outpatient (RCR) | payer MEDICARE, OTHER, SELFPAY | END 2023-04-08 23:59 | disposition home or self-care (01) | LOC: WPT 06:00 | PROVIDERS: PCP Family Medicine; Visit Provider Internal Medicine Pulmonary Disease | DX: M62.81 Muscle weakness (generalized) (principal); J43.2 Centrilobular emphysema; G47.30 Sleep apnea, unspecified | CPT/HCPCS: 97110; 97112; 97530 ==

== ENCOUNTER 2023-09-09 10:20 | Outpatient (CLI) | payer MEDICARE, OTHER, SELFPAY ==
--- NOTE | 2023-09-09 10:30 | MM_ITS ---
WS: [id number] BILATERAL SCREENING DIGITAL TOMOSYNTHESIS MAMMOGRAM WITH CAD HISTORY: SCREENING COMPARISON: 07/17/2022 Bilateral CC and MLO views with tomosynthesis and synthetic mammography submitted. Computer aided det ection analyzed. Breast composition: There are scattered areas of fibroglandular density. No suspicious masses, microc alcifications or architectural distortion. Benign calcifications and arterial calcifications in each breast. IMPRESSION: MM/[place] [id number] BI-RADS: 2-Benign FOLLOW UP: 1 Year Follow-up
== END 2023-09-09 10:21 | disposition home or self-care (01) ==
LOC: MOBLMAM 10:25
PROVIDERS: PCP Family Medicine; Visit Provider Family Medicine
DX: Z12.31 Encounter for screening mammogram for malignant neoplasm of breast (principal)
CPT/HCPCS: 77063; 77067

== ENCOUNTER → 2023-10-07 13:28 | Outpatient (BNVA) | payer MEDICARE, OTHER, SELFPAY | PROVIDERS: PCP Family Medicine; Visit Provider Dermatology | DX: L82.1 Other seborrheic keratosis (principal); D22.39 Melanocytic nevi of other parts of face; D69.2 Other nonthrombocytopenic purpura | CPT/HCPCS: 99203 ==

== ENCOUNTER 2024-09-27 11:06 | Outpatient (CLI) | payer MEDICARE, OTHER, SELFPAY ==
--- NOTE | 2024-09-27 11:08 | MM_ITS ---
WS: [id number] DIAGNOSTIC BILATERAL DIGITAL BREAST TOMOSYNTHESIS MAMMOGRAPHY WITH CAD LEFT breast ultrasound, limited HISTORY: LEFT BREAST PAIN COMPARISON: 09/09/2023, 07/17/2022, 01/30/2021 TECHNIQUE: Bilateral craniocaudad, mediolateral oblique, and mediolateral views are submitted with to mosynthesis and SM. Spot compression LEFT CC and MLO. Computer aided detection utilized. Breast composition: There are scattered areas of fibroglandular density. Vascular calcifications within each breast. Additional scattered round coarse punctate calcifications . No mass or abnormality is noted in the LEFT upper outer quadrant toward the axilla as indicated by the markers. No suspicious areas of distortion. No new mass or nodule. LEFT breast ultrasound, limited. Ultrasound is directed over the LEFT breast in the area of pain which is in the upper outer quadrant. Patient also indicated there is pain at 6:00. No suspicious masses. No distortion. There is a small benign lymph node towards the LEFT axilla. MM/MM diag BI tomosynthesis [id number] IMPRESSION: BI-RADS: 2 - Benign. FOLLOW UP: 1 Year Follow-up
== END 2024-09-27 11:07 | disposition home or self-care (01) ==
PROVIDERS: PCP Family Medicine; Visit Provider Family Medicine
DX: R92.323 Mammographic fibroglandular density, bilateral breasts (principal); R92.1 Mammographic calcification found on diagnostic imaging of breast; N64.4 Mastodynia
CPT/HCPCS: 76642; 77062; G0279